=== PATIENT | female | born 2005 | race Caucasian/White ===

== ENCOUNTER 2024-02-18 12:00 | Outpatient (RCR) | payer OTHER, SELFPAY | END 2024-04-08 09:53 | disposition home or self-care (01) | PROVIDERS: Visit Provider Registered Nurse | DX: S76.011A Strain of muscle, fascia and tendon of right hip, initial encounter (principal); M25.551 Pain in right hip; Z51.89 Encounter for other specified aftercare | CPT/HCPCS: 97110; 97140; 97161 ==